=== PATIENT | male | born 1985 | race Caucasian/White ===

== ENCOUNTER 2019-10-15 18:42 | Emergency (ER) | payer MEDICAID ==
[~2019-10-15] VITALS: Ht 165.1 cm; Wt 70.3 kg
[2019-10-15 18:57] VITALS: BP 131/76
--- NOTE | 2019-10-15 19:08 | NUR ---
PT AMBULATED TO ED BED 07. MADE AWARE OF PT STATUS
[2019-10-15] MEDS ORDERED: NACL 0.9% 1,000 ML IV SCH (19:18)
--- NOTE | 2019-10-15 19:25 | NUR ---
IV INSERTED AND LABS DRAWN BEDSIDE
[2019-10-15 19:39] LABS: BASOPHILS % (AUTO) 0.3 % (0.0-2.0); EOSINOPHILS # (AUTO) 0.1 K/uL (0-0.4); EOSINOPHILS % (AUTO) 0.8 % (0.0-4.0); HEMATOCRIT 44.5 % (36-52); HEMOGLOBIN 14.8 g/dL (12.0-18.0); LYMPHOCYTES # (AUTO) 2.5 K/uL (2.0-11.5); LYMPHOCYTES % (AUTO) 33.1 % (20.5-51.1); MEAN CORPUSCULAR HEMOGLOBIN 29 pg (27-31); MEAN CORPUSCULAR HGB CONC 33 g/dL (33-37); MONOCYTES # (AUTO) 0.5 K/uL (0.8-1.0); MONOCYTES % (AUTO) 6.3 % (1.7-9.3); NEUTROPHILS # (AUTO) 4.4 K/uL (1.8-7.7); NEUTROPHILS % (AUTO) 59.5 % (42.2-75.2); PLATELET COUNT (AUTO) 166 K/uL (140-450); RED BLOOD CELL COUNT(AUTO) 5.11 MIL/uL (4.20-6.10); RED CELL DISTRIBUTION WIDTH 13.7 % (11.6-13.7); WHITE BLOOD COUNT (AUTO) 7.4 K/uL (4.8-10.8)
[2019-10-15 20:02] LABS: ANION GAP 12.2 (8-16); CARBON DIOXIDE 29.8 mmol/L (21-32); PROTHROMBIN TIME 9.5 secs (10.8-13.4)
[2019-10-15 20:09] LABS: TOTAL BILIRUBIN 0.2 mg/dL (0.0-1.0)
--- NOTE | 2019-10-15 20:16 | NUR ---
NADR, PAIN 01/06
--- NOTE | 2019-10-15 20:18 | NUR ---
C/O HIGH POTASSIUM LEVELS FROM LAB DRAWN DONE ON FRIDAY. PT WAS NOTIFIED FROM PCP TODAY AND INSTRUCTED TO COME INTO ER. PT ALSO ADDS NON-RADIATING CHEST PAIN 4/10 X 3 DAYS. DESCRIBED SHARP. WORSENS WITH INHALATION. DENIES SOB, N/V/D, OR DIZZINESS. DR CRENSHAW NOTES REVIEWED PT IS [place]USTRIAN SPEAKING ONLY. PT ALERT AND AWAKE. VS STABLE. PMH-DM
--- NOTE | 2019-10-15 21:06 | NUR ---
REPORT GIVEN TO FREDIS RN Addendum: 10/15/19 at 2108 by RAYMUNDO REPORT TO MARIPOSA LESTER
--- NOTE | 2019-10-15 22:16 | NUR ---
Patient discharged with v/s stable. Written and verbal after care instructions given and explained. Patient verbalized understanding. Ambulatory with steady gait. All questions addressed prior to discharge. Advised to follow up with PMD.
[2019-10-15 22:18] LABS: D-DIMER < 100 ng/ml (0-400)
[2019-10-15 22:21] VITALS: BP 122/81
== END 2019-10-15 22:16 | disposition home or self-care (01) ==
LOC: MED 18:42
DX: E87.5 Hyperkalemia (principal); R07.89 Other chest pain; E11.9 Type 2 diabetes mellitus without complications
CPT/HCPCS: 36415; 71045; 80053; 82948; 83735; 84484; 85025; 85379; 85610; 85730; 93005; 96360; 99284; J7030; Q0092

== ENCOUNTER 2020-01-24 13:56 | Emergency (ER) | payer MEDICAID, SELFPAY ==
[~2020-01-24] VITALS: Ht 170.2 cm; Wt 69.2 kg
[2020-01-24 14:00] VITALS: BP 125/74
[2020-01-24] MEDS ORDERED: NACL 0.9% 1,000 ML IV ONE (14:20)
[2020-01-24] MEDS ORDERED: INSULIN REGULAR, HUMAN 100 UNIT/ML VIAL SUBQ ONE (14:20)
--- NOTE | 2020-01-24 14:37 | NUR ---
Xray at bedside
--- NOTE | 2020-01-24 14:42 | NUR ---
cxr completed at bedside
--- NOTE | 2020-01-24 14:56 | NUR ---
influenza and covid-19 swab collected
--- NOTE | 2020-01-24 15:34 | NUR ---
c/o recurring headache and subjective fever x 1 wk--- denies cough, n/v, or abdominal pains
[2020-01-24 15:51] LABS: BASOPHILS % (AUTO) 0.4 % (0.0-2.0); HEMOGLOBIN 13.1 g/dL (12.0-18.0); LYMPHOCYTES # (AUTO) 1.2 K/uL (2.0-11.5); LYMPHOCYTES % (AUTO) 35.8 % (20.5-51.1); MEAN CORPUSCULAR HEMOGLOBIN 28 pg (27-31); MEAN CORPUSCULAR HGB CONC 33 g/dL (33-37); MEAN CORPUSCULAR VOLUME 86.2 fL (80-94); MONOCYTES # (AUTO) 0.3 K/uL (0.8-1.0); NEUTROPHILS # (AUTO) 1.9 K/uL (1.8-7.7); NEUTROPHILS % (AUTO) 55.8 % (42.2-75.2); PLATELET COUNT (AUTO) 78 K/uL (140-450); RED BLOOD CELL COUNT(AUTO) 4.64 MIL/uL (4.20-6.10); RED CELL DISTRIBUTION WIDTH 13.2 % (11.6-13.7); WHITE BLOOD COUNT (AUTO) 3.4 K/uL (4.8-10.8)
--- NOTE | 2020-01-24 16:18 | NUR ---
CONTINUES TO WAIT FOR LAB RESULTS
[2020-01-24 16:21] LABS: ALBUMIN 2.9 g/dL (3.4-5.0); ANION GAP 12.8 (8-16); CARBON DIOXIDE 26.6 mmol/L (21-32); POTASSIUM 3.4 mmol/L (3.5-5.1); TOTAL BILIRUBIN 0.2 mg/dL (0.0-1.0)
[2020-01-24 16:35] LABS: APPEARANCE,URINE CLEAR (CLEAR); BILIRUBIN,URINE NEGATIVE (NEGATIVE); BLOOD, URINE NEGATIVE (NEGATIVE); COLOR,URINE YELLOW (YELLOW); LEUKOCYTE ESTERASE ,URINE NEGATIVE (NEGATIVE); NITRITE, URINE NEGATIVE (NEGATIVE); PH,URINE 5.5 (5.0-9.0); UGLUCOSE 3+ (NEGATIVE)
[2020-01-24 17:38] VITALS: BP 128/78
--- NOTE | 2020-01-24 17:39 | NUR ---
Patient discharged with v/s stable. Written and verbal after care instructions given and explained. Patient alert, oriented and verbalized understanding of instructions. Ambulatory with . All questions addressed prior to discharge. ID band removed. Patient advised to follow up with PMD. Rx of levaquin/tylenol given. Patient educated on indication of medication including possible reaction and side effects. Opportunity to ask questions provided and answered.
== END 2020-01-24 17:39 | disposition home or self-care (01) ==
LOC: EEVIPCON 13:56 → MED 13:56
DX: J18.9 Pneumonia, unspecified organism (principal); E11.65 Type 2 diabetes mellitus with hyperglycemia; D69.6 Thrombocytopenia, unspecified; Z20.828 Contact with and (suspected) exposure to other viral communicable diseases
CPT/HCPCS: 36415; 71045; 80053; 81003; 82948; 85025; 87635; 87804; 96360; 96372; 99284; J1815; J7030; Q0092

== ENCOUNTER 2020-01-25 23:07 | Emergency (ER) | payer MEDICAID, SELFPAY ==
[~2020-01-25] VITALS: Ht 170.2 cm; Wt 62.6 kg
[2020-01-25 23:17] VITALS: BP 119/89
[2020-01-25] MEDS ORDERED: IBUPROFEN 600 MG TAB PO ONE (23:55)
[2020-01-26] MEDS ORDERED: INSULIN REGULAR, HUMAN 100 UNIT/ML VIAL SUBQ ONE (00:20)
[2020-01-26 00:43] LABS: APPEARANCE,URINE CLEAR (CLEAR); BILIRUBIN,URINE NEGATIVE (NEGATIVE); BLOOD, URINE NEGATIVE (NEGATIVE); COLOR,URINE YELLOW (YELLOW); LEUKOCYTE ESTERASE ,URINE NEGATIVE (NEGATIVE); NITRITE, URINE NEGATIVE (NEGATIVE); PH,URINE 6.5 (5.0-9.0); UGLUCOSE 3+ (NEGATIVE)
[2020-01-26 02:51] VITALS: BP 121/76
== END 2020-01-26 01:20 | disposition home or self-care (01) ==
LOC: EEVIPCON 23:07 → MED 23:07
DX: U07.1 COVID-19 (principal); J12.9 Viral pneumonia, unspecified; E11.65 Type 2 diabetes mellitus with hyperglycemia
CPT/HCPCS: 71045; 81003; 96372; 99283; J1815; Q0092